=== PATIENT | female | born 1955 | race Hispanic/Latino ===

== ENCOUNTER → 2017-10-30 | Day surgery (SDC) | payer OTHER ==
[~2017-10-30] VITALS: Ht 167.6 cm; Wt 86.2 kg
[~2017-10-30] MED LIST: ACETAMINOPHEN650 M1 PO; ALDACTONE25 MG PO; ASPIRIN81 MG PO; BARRIER CREAM TOP; DIPHENHYDRAMINE25 M1 PO; FENTANYL CITRATE/PF 100MCG/2 ML INJ ONE; FUROSEMIDE40 MG PO; GLUCERNA237 ML PO; HEPARIN SOD/SOD CHLORIDE 2,000 ML ONE; HYDROMORPHO1 MG/1 ML IV; HYDROMORPHONE HC2 MG PO; IOPAMIDOL 370 MG/ML 200 ML INFUS..BTL INJ ONE; ISOSORBIDE DINI20 MG PO; LACTULOSE20 GM/30 M PO; LANTUS 3ML100 UNITS/; LANTUS 3ML100 UNITS/ SQ; LASIX40 MG PO; LIDOCAINE HCL 2% LOCAL 20 ML VIAL ONE; LIDOCAINE PATCH TOP; LORAZEPAM1 MG IVP; MEROPENEM500 MG IV; MIDAZOLAM HCL 2 MG/2 ML VIAL ONE; NOVOLOG100 UNITS1; PANTOPRAZOLE SO40 MG PO; PROPRANOLOL HCL10 MG PO; SODIUM CHLORIDE 0.9% 1000ML 1,000 ML ONE; XIFAXAN550 MG PO
[2017-10-30 14:00] VITALS: BP 113/50
[2017-10-30 14:45] VITALS: BP 107/45
[2017-10-30 15:09] VITALS: BP 111/56
[2017-10-30 15:15] VITALS: BP 105/51
[2017-10-30 15:30] VITALS: BP 107/77
[2017-10-30 15:45] VITALS: BP 110/56
--- NOTE | 2017-12-31 13:58 | Operative Report ---
DATE OF PROCEDURE: October 30, 2017 PROCEDURES PERFORMED 1. Abdominal aortogram. 2. Bilateral lower extremity angiograms. Access was obtained in the left femoral artery. Angiography demonstrated minimal peripheral arterial disease with 2-vessel runoff in both lower extremities. Left groin repaired using Vascade closure device. Patient was discharged home the same day. Job#: [id number]
== END | disposition home or self-care (01) ==
LOC: CATH LAB 13:37
PROVIDERS: ATTEND Internal Medicine Interventional Cardiology
DX: I70.203 Unspecified atherosclerosis of native arteries of extremities, bilateral legs (principal); E11.621 Type 2 diabetes mellitus with foot ulcer; K72.90 Hepatic failure, unspecified without coma; K70.30 Alcoholic cirrhosis of liver without ascites; Z91.013 Allergy to seafood; Z79.82 Long term (current) use of aspirin; Z79.4 Long term (current) use of insulin
CPT/HCPCS: 36247; 75625; 75710; C1760; C1769 ×2; J2001; J2250; J7030; Q9967

== ENCOUNTER 2017-11-12 14:58 | Inpatient (IN) | payer MEDICARE ==
[~2017-11-12] VITALS: Ht 147.3 cm; Wt 72.7 kg
[2017-11-12] MEDS: VANCOMYCIN 1GM/NS 250 ML 250 ML IV SCH (00:20)
[~2017-11-12 14:58] MED LIST changes: -ALDACTONE25 MG PO; -FENTANYL CITRATE/PF 100MCG/2 ML INJ ONE; -HEPARIN SOD/SOD CHLORIDE 2,000 ML ONE; -IOPAMIDOL 370 MG/ML 200 ML INFUS..BTL INJ ONE; -LANTUS 3ML100 UNITS/; -LANTUS 3ML100 UNITS/ SQ; -LASIX40 MG PO; -LIDOCAINE HCL 2% LOCAL 20 ML VIAL ONE; -MIDAZOLAM HCL 2 MG/2 ML VIAL ONE; -SODIUM CHLORIDE 0.9% 1000ML 1,000 ML ONE
[2017-11-12] MEDS ORDERED: LIDOCAINE HCL 1% LOCAL INJ 20 ML VIAL INJ ONE (15:31)
[2017-11-12] MEDS ORDERED: IBUPROFEN 600 MG TAB PO ONE (15:32)
[2017-11-12] MEDS ORDERED: ASPIRIN 81 MG CHEW TAB PO ONE (15:45)
[2017-11-12] MEDS ORDERED: VANCOMYCIN 1GM/NS 250 ML 250 ML IV ONE (15:45)
[2017-11-12] MEDS ORDERED: FAMOTIDINE 20 MG/2 ML VIAL IV ONE (15:45)
[2017-11-12] MEDS ORDERED: PIPERACILLIN/TAZO 4.5 GM 100 ML IV ONE (15:45)
[2017-11-12] MEDS ORDERED: ONDANSETRON HCL INJ 2 MG/ML VIAL IV PRN (15:45)
[2017-11-12 15:48] LABS: BASOPHILS % 0.2 % (0.0-1.0); EOSINOPHILS # (AUTO) 0.2 (0.0-0.4); EOSINOPHILS % 2.9 % (0.0-6.0); HEMATOCRIT 23.5 % (34.2-44.1); HEMOGLOBIN 7.9 g/dL (12.0-16.0); LYMPHOCYTES # (AUTO) 1.9 (1.0-3.2); LYMPHOCYTES % 28.5 % (18.0-39.1); MEAN CORPUSCULAR HEMOGLOBIN 36.2 pg (28-32); MEAN CORPUSCULAR HGB CONC 33.6 g/dL (31-35); MEAN CORPUSCULAR VOLUME 107.8 fL (81-99); MONOCYTES # (AUTO) 0.5 (0.2-0.8); MONOCYTES % 8.2 % (4.4-11.3); NEUTROPHILS # (AUTO) 3.9 (2.1-6.9); NEUTROPHILS % 59.9 % (38.7-80.0); PLATELET COUNT 109 x10e3/uL (140-360); RED BLOOD COUNT 2.18 x10e6/uL (3.6-5.1); RED CELL DISTRIBUTION WIDTH 20.2 % (11.7-14.4)
[2017-11-12 16:03] LABS: ALANINE AMINOTRANSFERASE 21 IU/L (0-55); ALBUMIN 1.8 g/dL (3.5-5.0); ALBUMIN/GLOBULIN RATIO 0.5 (0.8-2.0); ALKALINE PHOSPHATASE 208 IU/L (40-150); AMYLASE 50 U/L (25-125); ANION GAP 7.4 mmol/L (8-16); BLOOD UREA NITROGEN 19 mg/dL (7-26); BUN/CREATININE RATIO 33 (6-25); CALCIUM 7.8 mg/dL (8.4-10.2); CARBON DIOXIDE 27 mmol/L (22-29); CHLORIDE 105 mmol/L (98-107); CREATININE, SERUM 0.58 mg/dL (0.57-1.11); EST GLOMERULAR FILTRATION RATE > 60 ML/MIN (60-); GLUCOSE 248 mg/dL (74-118); LIPASE 75 U/L (8-78); MAGNESIUM 1.5 MG/DL (1.3-2.1); POTASSIUM 3.4 mmol/L (3.5-5.1); SODIUM 136 mmol/L (136-145)
--- NOTE | 2017-11-12 16:30 | Diagnostic Imaging Report ---
PROCEDURE: A single AP view of the chest. COMPARISON: None. INDICATIONS: PRE-OPERATIVE CHEST X-RAY FOR HIATAL HERNIA FINDINGS: Lines/tubes: None. Lungs: Markedly hypoinflated lungs, with bibasilar, right greater than left patchy opacities, likely representing atelectasis. No definite consolidation Pleura: There is no pleural effusion or pneumothorax. Heart and mediastinum: Cardiac silhouette is unremarkable. Central pulmonary vascular crowding, likely due to low lung volumes. Bones: No acute bony abnormality. Orthopedic hardware in the proximal right humerus. Degenerative changes in the left humeral joint. IMPRESSION: 1. markedly hypoinflated lungs with bibasilar, right greater than left atelectasis. No consolidation or effusion. Ryan Valenzuela M.D. Dictated by: Ryan Valenzuela M.D. on 11/12/2017 at 16:35 Electronically approved by: Ryan Valenzuela M.D. on 11/12/2017 at 16:35
[2017-11-12 17:10] LABS: CREATINE KINASE 11 IU/L (29-168)
[2017-11-12 18:06] LABS: BILIRUBIN,URINE NEGATIVE (NEGATIVE); CLARITY,URINE SL CLOUDY (CLEAR); COLOR,URINE YELLOW (YELLOW); KETONES,URINE NEGATIVE (NEGATIVE); LEUKOCYTE ESTERASE ,URINE TRACE (NEGATIVE); NITRITE,URINE NEGATIVE (NEGATIVE); PROTEIN,URINE DIPSTICK TRACE (NEGATIVE); URINE UROBILINOGEN 0.2 mg/dL (0.2 - 1)
[2017-11-12 18:11] LABS: BACTERIA,URINE MODERATE /HPF; EPITHELIAL CELLS,URINE FEW /LPF; MUCUS,URINE RARE (RARE); YEAST,URINE FEW
[2017-11-12] MEDS ORDERED: SODIUM CHLORIDE FLUSH 10 ML SYR INJ PRN (19:00)
[2017-11-12] MEDS ORDERED: DEXTROSE 50% SYRINGE 50 ML IV PRN (19:00)
[2017-11-12] MEDS ORDERED: VANCOMYCIN 1GM/NS 250 ML 250 ML IV SCH (19:00)
[2017-11-12] MEDS ORDERED: LANTUS 3ML100 UNITS/ (19:09)
[2017-11-12] MEDS ORDERED: ALDACTONE25 MG PO (19:09)
[2017-11-12] MEDS ORDERED: LANTUS 3ML100 UNITS/ SQ (19:11)
[2017-11-12] MEDS ORDERED: LASIX40 MG PO (19:11)
[2017-11-12] MEDS ORDERED: SODIUM CHLORIDE 0.9% 1000ML 500 ML IV SCH (19:30)
[2017-11-12 20:50] VITALS: BP 88/47
[2017-11-12] MEDS: INSULIN REGULAR, HUMAN 100 UNIT/1 ML 3ML VIAL SQ SCH (22:00)
[2017-11-12] MEDS: PIPER-TAZ 3.375 GM 50 ML IV SCH (22:23)
[2017-11-12] MEDS: VANCOMYCIN 1GM/NS 250 ML 250 ML IV ONE (23:17)
[2017-11-12] MEDS: LACTULOSE SYRUP 20 GM/30 ML UDC PO SCH (23:25)
[2017-11-13] VITALS (8 sets, daily range): BP systolic 88–116; BP diastolic 47–62
[2017-11-13] MEDS: VANCOMYCIN 1GM/NS 250 ML 250 ML IV ONE (00:42)
[2017-11-13] MEDS: PIPER-TAZ 3.375 GM 50 ML IV SCH ×4 (04:23→22:48)
[2017-11-13] MEDS ORDERED: SODIUM CHLORIDE 0.9% 250ML 250 ML ONE (04:29)
[2017-11-13] MEDS: LACTULOSE SYRUP 20 GM/30 ML UDC PO SCH ×3 (05:19→16:40)
[2017-11-13] MEDS ORDERED: VANCOMYCIN 1GM/NS 250 ML 250 ML IV SCH ×2 (05:30→11:30)
[2017-11-13] MEDS: INSULIN REGULAR, HUMAN 100 UNIT/1 ML 3ML VIAL SQ SCH ×4 (07:30→21:04)
[2017-11-13] MEDS: ACETAMINOPHEN/CODEINE 300MG - 30MG TAB PO PRN ×3 (09:37→22:14)
[2017-11-13] MEDS ORDERED: SODIUM CHLORIDE 0.9% 1000ML 1,000 ML IV ONE (10:15)
--- NOTE | 2017-11-13 10:27 | History and Physical ---
CHIEF COMPLAINT: Chest pain, nonhealing right foot ulcer. HISTORY OF PRESENT ILLNESS: A 62-year-old female patient with a history of diabetes mellitus type 2, alcoholic liver cirrhosis, peripheral vascular disease with a nonhealing diabetic food ulcer Ackerman grade 4. Patient recently hospitalized at the [facility], underwent debridement of the right foot ulcer by box spinner, Dr. Combs. She also had an angiogram of the lower extremities by Dr. Nirav Suarez. She was discharged to [facility] where she lives. She started to have increasing leg swelling and chest pain. She had a venous Doppler was negative for DVT. However, she continued to have chest pain; so, she was sent to the hospital. Patient is awake, alert. She is eager to go home. PAST MEDICAL HISTORY: Diabetes mellitus, hypertension, chronic kidney disease, and alcoholic cirrhosis. PERSONAL HISTORY: History of alcohol use in the past and now half-way resident. Denies smoking. SURGICAL HISTORY: Ankle surgery, foot surgery, debridement. MEDICATIONS 1. Levemir insulin. 2. Tylenol No. 3 for pain. 3. Rifaximin 550 mg p.o. q.12 h. 4. mg p.o. q.12 h. 5. Lidoderm patch. 6. Lactulose. 7. Aspirin 81 mg daily. 8. Aldactone 50 mg b.i.d. 9. Isosorbide dinitrate 30 mg daily. PHYSICAL EXAMINATION GENERAL: Blood pressure 89/65 , pulse of 80, and temperature 98. HEENT: Normal. NECK: No JVD. LUNGS: Bilateral air entry normal. ABDOMEN: Soft. No ascites. LOWER EXTREMITIES: Edema resolved. Right plantar foot: Patient has open wound with exposed fascia and tendon. No drainage noted at this time. LABS: Hemoglobin 7.9, potassium 3.4, platelets of 109. ASSESSMENT 1. Chest pain, atypical pain. 2. Right foot diabetic foot ulcer, Ackerman grade 4, nonhealing. 3. Diabetes mellitus. 4. Hypertension. PLAN: I will admit patient. Cardiology consultation. Apply Dakin's moistened Kerlix to the wound. Change the dressing daily. Infectious disease consultation. Job#: [id number] CF
[2017-11-13] MEDS: VANCOMYCIN 1GM/NS 250 ML 250 ML IV SCH ×2 (10:32→23:45)
--- NOTE | 2017-11-13 11:05 | Diagnostic Imaging Report ---
PROCEDURE: A single AP view of the chest. COMPARISON: Chest radiograph 11/12/2017 INDICATIONS: SOB, ANEMIA FINDINGS: Lines/tubes: None. Lungs: Persistent low lung volumes with right greater than left patchy opacities likely representing atelectasis. Pleura: Increased blunting of the right costophrenic sulcus likely representing a small pleural effusion. No left pleural effusion. No pneumothorax. Heart and mediastinum: The heart and the mediastinum are unremarkable. Bones: No acute bony abnormality. Partially visualized right humeral hardware. Post-traumatic changes of the left proximal humerus. IMPRESSION: Persistent hypoinflated lungs with bibasilar atelectasis. Trace right pleural effusion. Dictated by: Stan Perez M.D. on 11/13/2017 at 11:09 Electronically approved by: Stan Perez M.D. on 11/13/2017 at 11:09
[2017-11-13 11:16] LABS: FOLATE 10.1 ng/mL (7.0-15.4)
[2017-11-13] MEDS ORDERED: ASPIRIN 81 MG CHEW TAB PO ONE (11:45)
[2017-11-13 11:58] LABS: CREATINE KINASE MB 0.5 ng/mL (0-5.0)
[2017-11-13] MEDS ORDERED: FUROSEMIDE INJ 10 MG/ML 4 ML VIAL IV NR (13:00)
--- NOTE | 2017-11-13 13:27 | Consultation ---
DATE OF CONSULTATION: November 13, 2017 CHIEF COMPLAINT: Chest pain, arm pain, knee pain, headache. REASON FOR CONSULTATION: Chest pain. HISTORY OF PRESENT ILLNESS: Patient is a 62-year-old female who has been seen by our service in the past. Patient has history of diabetes, hypertension, hyperlipidemia. Has multiple diabetic foot wounds as well as altered mental status and was admitted to outside facility for care of her chronic medical problems. She was transferred to [facility] because she complained of chest pain. We are consulted for evaluation of this chest pain. Patient is a poor historian; however, reports the chest pain feels like somebody hit her in the chest. It hurts all over her chest with no mitigating factors or alleviating factors. Denies any shortness of breath, palpitations or dizziness. Reports that the chest pain is 7 out of 10 in severity, has been happening for the past 1 hour, seems to arise randomly without any associated signs or symptoms. REVIEW OF SYSTEMS: A 10-point review of systems was performed and other than the HPI was only positive for knee pain, arm pain, headaches and swelling in the legs. PAST MEDICAL HISTORY 1. Diabetes with multiple diabetic foot wounds. 2. Hypertension. 3. Hyperlipidemia. FAMILY HISTORY: Patient's family history is negative for any premature coronary artery disease, otherwise noncontributory. SOCIAL HISTORY: Patient had a history of alcohol use in the past and is now a longterm resident. Denies smoking. CARDIOVASCULAR MEDICATIONS: The patient is on aspirin 81 mg daily, Aldactone 50 mg twice a day, and isosorbide dinitrate 30 mg daily. PHYSICAL EXAMINATION VITAL SIGNS: Temperature 97.5, heart rate 70, respiratory rate 18, blood pressure 102/52, satting 97% on room air. EYES: Conjunctivae are pale but clear. EARS, NOSE, MOUTH AND THROAT: Normal mucosa, pallor but no bleeding or ulcerations noted. NECK: There is no jugular venous distention. MUSCULOSKELETAL: Normal muscle tone but poor strength. No atrophy or abnormal movements. EXTREMITIES: There is no clubbing or cyanosis. SKIN: There are ulcerations of bilateral lower extremities that are covered in dressing. There are no significant venous stasis changes noted. GENERAL: Patient is a well-developed and well-nourished female. CARDIOVASCULAR: Patient's PMI is nondisplaced. Heart tones are regular. Normal S1 and S2 with no murmur, rubs or gallops heard. Patient has normal carotid pulsations bilaterally. Patient has palpable femoral pulses as well as palpable pedal pulses. There is 2+ edema to the level of the knees. RESPIRATORY: No respiratory distress. Lungs are clear to auscultation bilaterally, though poor respiratory effort. ABDOMEN: Soft, nontender and nondistended. There are no masses. No hepatomegaly or splenomegaly noted. NEURO AND PSYCH: Patient is alert and oriented only to person and place. Displays a normal affect. LAB: Lab results reviewed. Patient has macrocytic anemia with hemoglobin of 7.9 and MCV of 100.8. Chemistry: Mildly elevated glucose, normal B12 and folate levels. IMAGING DATA: Reviewed. Chest x-ray with poor expiratory effort, otherwise no significant abnormality. ECG reviewed, normal sinus rhythm with no significant ST-T wave changes. Echo: Patient has no recent echo in our records. Stress test: Patient has never previously had a stress test. Cath: Number 1, patient had a peripheral angiogram performed in October 2017 which displayed no significant peripheral arterial disease. Number 2, patient had coronary angiography performed in 2012 which showed no significant coronary artery disease at that time. ASSESSMENT 1. Atypical chest pain. 2. Chronic liver cirrhosis. 3. Diabetes. 4. Altered mental status. PLAN: Patient's chest pain is very atypical, and patient has a myriad of other nonspecific complaints. She seems a little confused. Unclear if this is her baseline related to her cirrhosis or acute change. Her EKG is unremarkable. Had a cath in 2012 which was normal without significant coronary artery disease. Given these findings, recommend checking 1 set of cardiac enzymes to rule out for any acute myocardial infarction and getting an echocardiogram to evaluate for any structural heart disease. Otherwise, if cardiac enzymes remain normal, I do not feel that any further risk stratification is needed given a normal ECG, atypical chest pain and normal catheterization in the past. Thank you for the consult. Will continue to follow. Job#: [id number] RENE
--- NOTE | 2017-11-13 13:30 | Diagnostic Imaging Report ---
PROCEDURE:US RETROPERITONEAL ( KIDNEY ). COMPARISON:None. INDICATIONS:LOW URINARY OUTPUT TECHNIQUE: Mai-scale and color sonographic images of the bilateral kidneys and bladder where obtained in transverse and longitudinal planes. FINDINGS: RIGHT KIDNEY: Measures 9.9 x 4.3 x 4.4 cm, cortex measures 1.5 cm Cysts: None Solid masses: None Stones: None Hydronephrosis: None Echogenicity: Normal LEFT KIDNEY: Measures 10.2 x 5.1 x 4.5 cm, cortex measures 1.4 cm Cysts: None Solid masses: None Stones: None Hydronephrosis: None Echogenicity: Normal Bladder: Bladder is decompressed via Gutierrez catheter. Other: Free fluid in the abdomen. CONCLUSION: No evidence of hydronephrosis or stones. Ascites within the right upper quadrant. Vinayak Turner D.O. Dictated by: Vinayak Turner D.O. on 11/13/2017 at 13:34 Electronically approved by: Vinayak Turner D.O. on 11/13/2017 at 13:34
[2017-11-13] MEDS ORDERED: MAGNESIUM SULFATE 2GM/50ML 50 ML IV ONE (14:00)
[2017-11-13] MEDS ORDERED: FUROSEMIDE INJ 10 MG/ML 4 ML VIAL IV ONE (14:00)
--- NOTE | 2017-11-13 15:52 | Consultation ---
DATE OF CONSULTATION: RENAL CONSULTATION HISTORY OF PRESENT ILLNESS: Patient is a poor historian. This is a 62-year-old lady who was admitted with generalized edema. She is complaining of pain in her legs where she has some blisters in her feet. Both feet are covered by dressing. She denies any nausea and vomiting at this point in time. ALLERGIES: SHE IS NOT ALLERGIC TO ANY MEDICATIONS. Currently denies shortness of breath, nausea, vomiting. She had a recent angiogram of the lower extremity with peripheral vascular disease. She had a Doppler which was negative for DVT. She has got a longstanding history of type 2 diabetes, alcoholic cirrhosis, hypertension, portal hypertension, chronic kidney disease. SOCIAL HISTORY: Does not smoke or drink. FAMILY HISTORY: Significant for hypertension. RECENT LABS: White count 6.5. Hemoglobin 7.9. Sodium 136 with a potassium 3.4, chloride 105, bicarbonate 27, creatinine 0.5. Magnesium level 1.5. These labs were done yesterday. CURRENT MEDICATIONS: Patient is on furosemide one-time dose. Ibuprofen she received one time. She is on lactulose q. 6 hours. Insulin. She is also on vancomycin per protocol. Received 1 liter bag of normal saline. She has a Gutierrez catheter. She also received a dose of Lasix. She has put out more urine than before. PHYSICAL EXAMINATION: GENERAL: Awake, alert, lying supine. No apparent distress. VITALS: Blood pressure 111/52 pulse. Pulse rate 69. Afebrile. Oxygen saturation 96% room air. HEAD AND NECK: Cornea clear. Oral mucosa dry. LUNGS: Decreased air entry with scattered rales lower third, left more than right. HEART: S1 and S2 audible. ABDOMEN: Otherwise soft, nontender. LOWER EXTREMITY EXAMINATION: Shows 2+ edema, flank edema 1+. IMPRESSION: 1. Generalized edema state with flank, sacral lower extremity edema. Evidence of atelectasis on chest x-ray. 1. Hypokalemia. 2. Hypomagnesemia. Will obtain chemistries. Gently diurese with Lasix 40 mg IV q.12. Will add Aldactone 50 mg p.o. b.i.d. Obtain urine protein/creatinine ratio. Overall prognosis appears poor. Job#: [id number] EV
[2017-11-13] MEDS ORDERED: SODIUM HYPOCHLORITE 0.25% 480 ML SOLN IR ONE (17:00)
[2017-11-13] MEDS ORDERED: SPIRONOLACTONE 25 MG TAB PO SCH (17:00)
--- NOTE | 2017-11-13 18:28 | Diagnostic Imaging Report ---
PROCEDURE:US LIVER COMPARISON:None. INDICATIONS:Cirrhosis FINDINGS: LIVER: Size:14.5 cm in the right midclavicular line, normal Appearance:Increased echogenicity, nodular contour Mass:No focal masses GALLBLADDER: Not visualized BILE DUCTS: Intrahepatic Ducts:No dilation Extrahepatic Ducts:Common bile duct not visualized. PANCREAS: Not visualized secondary to overlying bowel gas. RIGHT KIDNEY: Size:9.4 cm in length Echogenicity:Normal Collecting System:No hydronephrosis Stone:None Cyst/Mass:None VESSELS: Aorta:Not well visualized secondary to overlying bowel gas Inferior Vena Cava:Visualized portions are normal. Main Portal Vein:Not visualized. FREE FLUID: Moderate to large amount of ascites. CONCLUSION: 1. Limited exam with nonvisualization of the gallbladder, CBD, pancreas, and main portal vein. 2. Nodular contour of the liver in keeping with cirrhosis. 3. Moderate to large volume ascites. Dictated by: Stan Perez M.D. on 11/13/2017 at 18:32 Electronically approved by: Stan Perez M.D. on 11/13/2017 at 18:32
--- NOTE | 2017-11-13 19:35 | Consultation ---
DATE OF CONSULTATION: November 13, 2017 REASON FOR CONSULTATION: Right foot infection. Thank you Dr. Hastings for asking me to see this patient. HISTORY: The patient is a 62-year-old woman referred for right foot infection. She was sent to the emergency department with left lower extremity pain and swelling as well as chest pain. There was no fever, chills, cough, or shortness of breath. She was recently hospitalized with severe right diabetic foot infection and required extensive incision and debridement of the plantar aspect of the right foot and lateral right heel. The patient had a long hospitalization for wound care and intravenous antibiotics. She also had a peripheral angiogram, which showed severe peripheral arterial disease and she was supposed to follow up with vascular service. The patient had venous Doppler ultrasound on 11/07/2017 at the [facility] which showed no DVT. I called the [facility] at [phone] to find out if the patient had percutaneous angioplasty recently, but the call was unrewarding. I discussed with PCP who informed me that the patient underwent percutaneous angioplasty about 2 weeks ago. PAST MEDICAL HISTORY: Diabetes mellitus type 2, hypertension, coronary artery disease, peripheral arterial disease, alcoholic liver cirrhosis with esophageal varices, hepatic encephalopathy, right diabetic foot infection, and MRSA nasal colonization. PAST SURGICAL HISTORY: Right shoulder surgery, left ankle surgery and recent right foot wound debridement. ALLERGIES: NO KNOWN DRUG ALLERGIES. MEDICATIONS: See MAR. The current antibiotics are Zosyn 3.375 grams IV piggyback q.6 hours and vancomycin 1 gram IV piggyback q.12 hours. IMMUNIZATION: She received pneumococcal vaccination prior to admission. FAMILY HISTORY: Significant for hypertension. SOCIAL HISTORY: She is a [facility] resident. No current alcohol or tobacco use. She used to be a heavy alcohol consumer. REVIEW OF SYSTEMS: As per history of present illness. PHYSICAL EXAMINATION: VITALS: T-max 98.1, pulse 72, respiratory 18, blood pressure 98/63. Weight 166 pounds. GENERAL: No acute distress. HEENT: Normocephalic. There is mild icterus icterus. There is no ear or nasal discharge. Moist oral mucosa. No pharyngeal erythema or exudate. NECK: Supple. No lymphadenopathy or meningismus. LUNGS: Good air entry bilaterally. HEART: Normal S1 and S2. ABDOMEN: Soft and nontender. EXTREMITIES: 2+ edema of the legs bilaterally. The left leg incisions with ecchymosis and serosanguineous discharge. There is extensive debrided wound of the plantar aspect of the right foot as well as the lateral right heel. SKIN: As per extremities. DOUBLE END SEWER: Awake, alert and oriented to person and place. LABORATORY DATA AND DIAGNOSTICS: WBC 6500, hemoglobin 7.9, platelets 109,000, neutrophils 59.9, lymph 28.5, monos 8.2, eosinophils 2.9, basophils 0.2. BUN 19, creatinine 0.58, blood glucose 144, AST 42 and ALT 21, alkaline phos 208, total bilirubin 3. Right foot wound culture is growing gram-negative yary. Blood culture showed no growth:. IMPRESSION: 1. Debrided right diabetic foot infection. 2. Severe peripheral arterial disease. 3. Diabetes mellitus type 2, controlled. 4. Alcoholic liver cirrhosis. PLAN: 1. Consult cardiovascular service if not yet done. 2. Change Zosyn to 3.375 grams IV piggyback q.8 hours and infuse over 4 hours. 3. Local wound care. 4. Remove Gutierrez catheter. [facility] [id number] [facility]
[2017-11-13] MEDS: SPIRONOLACTONE 25 MG TAB PO SCH (20:09)
[2017-11-13 20:45] LABS: CREATININE,URINE RANDOM 26.67 mg/dL (47-110); TOTAL PROTEIN, URINE 11.8 mg/dL (1-14)
[2017-11-13] MEDS: FUROSEMIDE INJ 10 MG/ML 4 ML VIAL IV SCH (20:59)
[2017-11-14] VITALS (8 sets, daily range): BP systolic 98–125; BP diastolic 47–60
[2017-11-14 05:01] LABS: BASOPHILS % 0.2 % (0.0-1.0); EOSINOPHILS # (AUTO) 0.3 (0.0-0.4); EOSINOPHILS % 4.9 % (0.0-6.0); HEMOGLOBIN 7.5 g/dL (12.0-16.0); LYMPHOCYTES # (AUTO) 1.2 (1.0-3.2); LYMPHOCYTES % 24.4 % (18.0-39.1); MEAN CORPUSCULAR HEMOGLOBIN 36.6 pg (28-32); MEAN CORPUSCULAR HGB CONC 33.9 g/dL (31-35); MEAN CORPUSCULAR VOLUME 107.8 fL (81-99); MONOCYTES # (AUTO) 0.5 (0.2-0.8); MONOCYTES % 9.1 % (4.4-11.3); NEUTROPHILS # (AUTO) 3.1 (2.1-6.9); NEUTROPHILS % 61.2 % (38.7-80.0); PLATELET COUNT 102 x10e3/uL (140-360); RED BLOOD COUNT 2.05 x10e6/uL (3.6-5.1); RED CELL DISTRIBUTION WIDTH 20.1 % (11.7-14.4)
[2017-11-14 05:03] LABS: HEMATOCRIT 22.1 % (34.2-44.1)
[2017-11-14 05:25] LABS: ALANINE AMINOTRANSFERASE 19 IU/L (0-55); ALBUMIN 1.6 g/dL (3.5-5.0); ALBUMIN/GLOBULIN RATIO 0.5 (0.8-2.0); ALKALINE PHOSPHATASE 151 IU/L (40-150); ANION GAP 9.1 mmol/L (8-16); BLOOD UREA NITROGEN 18 mg/dL (7-26); BUN/CREATININE RATIO 28 (6-25); CALCIUM 7.5 mg/dL (8.4-10.2); CARBON DIOXIDE 27 mmol/L (22-29); CHLORIDE 106 mmol/L (98-107); CREATININE, SERUM 0.64 mg/dL (0.57-1.11); EST GLOMERULAR FILTRATION RATE > 60 ML/MIN (60-); GLUCOSE 129 mg/dL (74-118); POTASSIUM 3.1 mmol/L (3.5-5.1); SODIUM 139 mmol/L (136-145)
[2017-11-14] MEDS: LACTULOSE SYRUP 20 GM/30 ML UDC PO SCH ×5 (05:49→23:29)
[2017-11-14] MEDS: PIPER-TAZ 3.375 GM 50 ML IV SCH ×4 (05:49→23:18)
[2017-11-14] MEDS ORDERED: POTASSIUM CHLORIDE 20MEQ/100ML 200 ML IV ONE (07:00)
[2017-11-14] MEDS: FUROSEMIDE INJ 10 MG/ML 4 ML VIAL IV SCH ×3 (08:34→23:18)
[2017-11-14] MEDS: INSULIN REGULAR, HUMAN 100 UNIT/1 ML 3ML VIAL SQ SCH ×4 (08:34→22:02)
[2017-11-14] MEDS: COLLAGENASE OINTMENT 30 GM TUBE TP SCH (08:34)
[2017-11-14] MEDS: SPIRONOLACTONE 25 MG TAB PO SCH ×2 (08:34→21:39)
[2017-11-14] MEDS: ACETAMINOPHEN/CODEINE 300MG - 30MG TAB PO PRN ×2 (08:35→21:58)
[2017-11-14] MEDS ORDERED: SODIUM CHLORIDE 0.9% 250ML 250 ML IV ONE (11:15)
[2017-11-14] MEDS: VANCOMYCIN 1GM/NS 250 ML 250 ML IV SCH (11:30)
--- NOTE | 2017-11-14 11:33 | Progress Note ---
DATE: November 14, 2017 CARDIOLOGY PROGRESS NOTE SUBJECTIVE: The patient denies chest pain or shortness of breath. OBJECTIVE VITALS: Temperature 96.5 degrees, pulse 78, respiratory rate 20, blood pressure 125/56, oxygen saturation 95% on room air. GENERAL: Awake, alert and in no acute distress. LUNGS: Clear to auscultation bilaterally. No wheezes or crackles. CARDIOVASCULAR: Normal rate. Regular rhythm. No murmur. Normal S1 and S2. ABDOMEN: Soft and nontender. EXTREMITIES: Three plus pitting edema in bilateral lower extremities with dressing intact on the right foot, as well as skin tears on the left lower leg. CARDIAC MEDICATIONS 1. Spironolactone 50 mg p.o. q.12 h. 2. Furosemide 40 mg IV q.12 h. LABS: WBC 5.08, hemoglobin 7.5, hematocrit 22.1, and platelets 102,000. Sodium 139, potassium 3.1, chloride 106, CO2 27, BUN 18, creatinine 0.64. Telemetry is normal sinus rhythm. Peripheral angiogram in October 2017 did not demonstrate any significant peripheral arterial disease. Coronary angiogram performed in 2012 without significant coronary artery disease. IMPRESSION 1. Infected diabetic right foot ulcer. 2. Atypical chest pain. 3. Liver cirrhosis. 4. Diabetes mellitus. RECOMMENDATIONS: Strict I's and O's, as well as daily weights. Fluid restriction. No evidence of myocardial infarction was present on serial cardiac biomarkers. Continue current cardiac medications. No further cardiac evaluation is indicated at this time. Continue monitoring the patient on telemetry. IV antibiotics per infectious disease. Wound care per podiatry. Thank you for this consult. We will continue to follow. Job#: [id number] MAHIN
[2017-11-14] MEDS: FUROSEMIDE INJ 10 MG/ML 2 ML VIAL IV PRN (16:23)
[2017-11-15] VITALS (7 sets, daily range): BP systolic 107–122; BP diastolic 53–58
[2017-11-15 05:24] LABS: BASOPHILS % 0.2 % (0.0-1.0); EOSINOPHILS # (AUTO) 0.2 (0.0-0.4); EOSINOPHILS % 3.4 % (0.0-6.0); HEMATOCRIT 23.9 % (34.2-44.1); HEMOGLOBIN 8.1 g/dL (12.0-16.0); LYMPHOCYTES # (AUTO) 1.4 (1.0-3.2); LYMPHOCYTES % 31.8 % (18.0-39.1); MEAN CORPUSCULAR HEMOGLOBIN 35.2 pg (28-32); MEAN CORPUSCULAR HGB CONC 33.9 g/dL (31-35); MONOCYTES # (AUTO) 0.4 (0.2-0.8); NEUTROPHILS # (AUTO) 2.4 (2.1-6.9); NEUTROPHILS % 54.4 % (38.7-80.0); PLATELET COUNT 68 x10e3/uL (140-360)
[2017-11-15 05:28] LABS: MEAN CORPUSCULAR VOLUME 103.9 fL (81-99)
[2017-11-15 05:45] LABS: ALANINE AMINOTRANSFERASE 18 IU/L (0-55); ALBUMIN 1.6 g/dL (3.5-5.0); ALBUMIN/GLOBULIN RATIO 0.5 (0.8-2.0); ALKALINE PHOSPHATASE 155 IU/L (40-150); ANION GAP 9.1 mmol/L (8-16); BLOOD UREA NITROGEN 14 mg/dL (7-26); BUN/CREATININE RATIO 23 (6-25); CALCIUM 7.6 mg/dL (8.4-10.2); CARBON DIOXIDE 29 mmol/L (22-29); CHLORIDE 102 mmol/L (98-107); EST GLOMERULAR FILTRATION RATE > 60 ML/MIN (60-); GLUCOSE 112 mg/dL (74-118); POTASSIUM 3.1 mmol/L (3.5-5.1); SODIUM 137 mmol/L (136-145)
[2017-11-15] MEDS: FUROSEMIDE INJ 10 MG/ML 4 ML VIAL IV SCH ×3 (06:47→21:58)
[2017-11-15] MEDS: LACTULOSE SYRUP 20 GM/30 ML UDC PO SCH ×4 (06:47→23:44)
[2017-11-15] MEDS: PIPER-TAZ 3.375 GM 50 ML IV SCH ×3 (06:47→21:58)
[2017-11-15] MEDS: INSULIN REGULAR, HUMAN 100 UNIT/1 ML 3ML VIAL SQ SCH ×4 (07:30→20:42)
[2017-11-15] MEDS: SPIRONOLACTONE 25 MG TAB PO SCH ×2 (07:56→20:41)
[2017-11-15] MEDS ORDERED: POTASSIUM CHLORIDE 20MEQ/15ML UDC PO ONE (10:00)
[2017-11-15] MEDS ORDERED: POTASSIUM CHLORIDE 10 MEQ TABCR PO ONE (10:30)
[2017-11-15] MEDS ORDERED: SODIUM CHLORIDE 0.9% 250ML 250 ML ONE (12:12)
--- NOTE | 2017-11-15 13:19 | Progress Note ---
DATE: November 15, 2017 CARDIOLOGY PROGRESS NOTE SUBJECTIVE: Patient denies chest pain. However, she is complaining of shortness of breath. She wishes to go home. However, the patient is only able to state that she is at the hospital. She could not name the location of the hospital or the name of the facility. Additionally, she stated the year was 2019. OBJECTIVE VITAL SIGNS: Temperature 98.2 degrees, pulse 93, respiratory rate 18, blood pressure 120/53, oxygen saturation 93% on 3 liters nasal cannula. GENERAL: Awake, alert, in no acute distress. LUNGS: Clear to auscultation bilaterally. No wheezes or crackles. CARDIOVASCULAR: Normal rate, regular rhythm. No murmur. Normal S1 and S2. ABDOMEN: Soft, nontender. EXTREMITIES: 3+ pitting edema bilateral lower extremities with dressing intact on the right foot. CARDIAC MEDICATIONS 1. Spironolactone 50 mg p.o. q.12 h. 2. Furosemide 40 mg IV q.8 h. LABS: WBC 4.4, hemoglobin 8.1, hematocrit 23.9, platelets 68. Sodium 137, potassium 3.1, chloride 102, CO2 29, BUN 14, creatinine 0.6. Urine culture growing Janelle famata. Foot wound culture with gram-negative bacillus as well as MRSA. TELEMETRY: Normal sinus rhythm. PERIPHERAL ANGIOGRAM IN OCTOBER 2017: Did not demonstrate any significant peripheral arterial disease. CORONARY ANGIOGRAM PERFORMED IN 2012: Without significant coronary artery disease. IMPRESSION 1. Infected diabetic right foot ulcer. 2. Atypical chest pain. 3. Volume overload. 4. Liver cirrhosis. 5. Diabetes mellitus. RECOMMENDATIONS: Patient has had good diuresis with spironolactone and IV Lasix. We will continue to monitor creatinine. Strict I's and O's and daily weights. No evidence of myocardial infarction was present on serial cardiac biomarkers. Continue current cardiac medications. Monitor patient on telemetry. IV antibiotics per Infectious Disease. Wound care per Podiatry. Thank you for this consult. We will continue to follow. Job#: [id number] EV MTDOnel
[2017-11-15] MEDS: COLLAGENASE OINTMENT 30 GM TUBE TP SCH (17:01)
--- NOTE | 2017-11-15 17:57 | Diagnostic Imaging Report ---
FOOT RIGHT COMPLETE - 3 views HISTORY: Diabetic foot. Foot ulcer. Osteomyelitis? COMPARISON: None available. FINDINGS: Lateral view wasn't obtained patient could not cooperate with positioning. Overlying artifact. Bones: Generalized osteopenia. No definite erosions. No acute displaced fracture. Joints: Degenerative changes of the hindfoot joint. Sclerosis of the calcaneus. Soft tissues: Vessel calcifications. Soft tissue swelling. IMPRESSION: Limited exam. Osteopenia limits of resolution for erosions. Consider evaluation with MRI. Signed by: Dr. Rea Mckee M.D. on 11/15/2017 5:53 PM
[2017-11-15] MEDS: PANTOPRAZOLE SOD 40 MG TABEC PO SCH (18:09)
[2017-11-15] MEDS: ACETAMINOPHEN/CODEINE 300MG - 30MG TAB PO PRN (18:34)
[2017-11-15 22:03] LABS: INR 1.62; PROTHROMBIN TIME 18.1 seconds (11.9-14.5)
[2017-11-16] VITALS (8 sets, daily range): BP systolic 95–132; BP diastolic 47–60
[2017-11-16] MEDS ORDERED: PHYTONADIONE 10 MG/ML AMP IV STA (02:01)
[2017-11-16] MEDS ORDERED: PHYTONADIONE 10MG/ML 20 MG in SODIUM CHLORIDE 0.9% 100 ML IV ONE (02:15)
[2017-11-16] MEDS ORDERED: PHYTONADIONE 10MG/ML 2 ML ONE (02:21)
[2017-11-16] MEDS ORDERED: SODIUM CHLORIDE 0.9% 100 ML ONE (02:41)
[2017-11-16] MEDS: LACTULOSE SYRUP 20 GM/30 ML UDC PO SCH ×3 (06:00→18:00)
[2017-11-16 06:03] LABS: BASOPHILS % 0.2 % (0.0-1.0); EOSINOPHILS # (AUTO) 0.1 (0.0-0.4); EOSINOPHILS % 1.7 % (0.0-6.0); HEMATOCRIT 27.3 % (34.2-44.1); HEMOGLOBIN 9.2 g/dL (12.0-16.0); LYMPHOCYTES # (AUTO) 1.4 (1.0-3.2); LYMPHOCYTES % 24.7 % (18.0-39.1); MEAN CORPUSCULAR HEMOGLOBIN 34.7 pg (28-32); MEAN CORPUSCULAR HGB CONC 33.7 g/dL (31-35); MONOCYTES # (AUTO) 0.4 (0.2-0.8); MONOCYTES % 7.5 % (4.4-11.3); NEUTROPHILS # (AUTO) 3.8 (2.1-6.9); NEUTROPHILS % 65.4 % (38.7-80.0); PLATELET COUNT 67 x10e3/uL (140-360); RED BLOOD COUNT 2.65 x10e6/uL (3.6-5.1); RED CELL DISTRIBUTION WIDTH 20.8 % (11.7-14.4)
[2017-11-16] MEDS: FUROSEMIDE INJ 10 MG/ML 4 ML VIAL IV SCH ×3 (06:09→22:03)
[2017-11-16] MEDS: PIPER-TAZ 3.375 GM 50 ML IV SCH (06:09)
[2017-11-16 06:14] LABS: INR 1.46; PROTHROMBIN TIME 16.7 seconds (11.9-14.5)
[2017-11-16 06:15] LABS: PARTIAL THROMBOPLASTIN TIME 34.7 seconds (23.8-35.5)
[2017-11-16 06:23] LABS: ALANINE AMINOTRANSFERASE 17 IU/L (0-55); ALBUMIN 1.7 g/dL (3.5-5.0); ALBUMIN/GLOBULIN RATIO 0.5 (0.8-2.0); ALKALINE PHOSPHATASE 163 IU/L (40-150); ANION GAP 12.6 mmol/L (8-16); BLOOD UREA NITROGEN 11 mg/dL (7-26); BUN/CREATININE RATIO 19 (6-25); CALCIUM 7.9 mg/dL (8.4-10.2); CARBON DIOXIDE 29 mmol/L (22-29); CHLORIDE 99 mmol/L (98-107); CREATININE, SERUM 0.59 mg/dL (0.57-1.11); EST GLOMERULAR FILTRATION RATE > 60 ML/MIN (60-); GLUCOSE 93 mg/dL (74-118); POTASSIUM 3.6 mmol/L (3.5-5.1); SODIUM 137 mmol/L (136-145)
[2017-11-16 06:39] LABS: BILIRUBIN,DIRECT 1.7 mg/dL (0.0-0.5); CHOL/HDL RATIO 6.8 (3.0-3.6); CHOLESTEROL 81 MD/DL (0-199); HDL CHOLESTEROL 12 MG/DL (40-60); IRON 64 ug/dL (50-170); LDL CHOLESTEROL 51 MG/DL (60-130); MAGNESIUM 1.2 MG/DL (1.3-2.1); TRANSFERRIN < 70 mg/dL (180-382); TRIGLYCERIDES 91 MG/DL (0-149)
[2017-11-16 06:59] LABS: FERRITIN 498.27 ng/mL (4.63-204.00)
[2017-11-16] MEDS: PANTOPRAZOLE SOD 40 MG TABEC PO SCH (07:30)
[2017-11-16] MEDS: INSULIN REGULAR, HUMAN 100 UNIT/1 ML 3ML VIAL SQ SCH ×4 (07:30→20:58)
[2017-11-16] MEDS ORDERED: MAGNESIUM SULFATE 2GM/50ML 50 ML IV ONE (08:45)
[2017-11-16] MEDS: RIFAXIMIN 550 MG TABLET PO SCH ×2 (09:00→18:00)
[2017-11-16] MEDS: PROPRANOLOL HCL 10 MG TAB PO SCH ×2 (09:00→17:00)
[2017-11-16] MEDS: SPIRONOLACTONE 25 MG TAB PO SCH ×2 (09:00→20:58)
[2017-11-16] MEDS ORDERED: D5.45%NS/KCL 20MEQ 1,000 ML IV ONE (09:15)
--- NOTE | 2017-11-16 14:31 | Progress Note ---
DATE: November 16, 2017 CARDIOLOGY PROGRESS NOTE SUBJECTIVE AND OVERNIGHT EVENTS: No major events overnight. Patient is much more alert and oriented x3 this morning, which is an improvement from when I saw her last. Denies any chest pain or shortness of breath and overall is feeling better. REVIEW OF SYSTEMS: Negative other than what is mentioned in the HPI. OBJECTIVE VITAL SIGNS: Temperature 99.0, heart rate 93, respiratory rate 18, blood pressure 95/47, and saturating 99% on room air. Intake and output, patient has had 2000 mL of urine output today and is diuresing well. Intake is not recorded. GENERAL: Patient is in no acute distress. Thin female. CARDIOVASCULAR: PMI nondisplaced. Regular heart tones. S1 and S2 normal. No murmurs, rubs or gallops. Palpable radial, carotid and femoral pulses. Pedal pulses could not be palpated due to significant edema. The patient has a dressing over her bilateral lower extremities. Three plus pitting edema up to her thighs. LUNGS: Clear to auscultation bilaterally. No respiratory distress. ABDOMEN: Soft, nontender and nondistended. No hepatosplenomegaly. NEURO/PSYCH: The patient is alert and oriented to person and place. Not time. Has a normal affect. CARDIOVASCULAR MEDICATIONS: Furosemide 40 mg IV q.8h., propranolol 10 mg twice a day, and spironolactone 50 mg q.12h. p.o. LABORATORY DATA: Reviewed, is notable for hemoglobin of 9.2, which has improved from hemoglobin of 7.5 earlier, platelet count is 67. Her INR is 1.5 with elevated PT of 16.7. Chemistry : Potassium is 3.6 with creatinine of 0.59. IMAGING: Imaging studies reviewed. No significant imaging data today. TELEMETRY: Telemetry data reviewed. Normal sinus rhythm. No significant arrhythmias. ASSESSMENT 1. Infected diabetic bilateral lower extremity ulcerations. 2. Atypical chest pain. 3. Volume overload. 4. Liver cirrhosis, likely alcoholic. 5. Diabetes. RECOMMENDATIONS: Diuresing well on current diuretic regimen as stated above. We will continue current medications and monitor creatinine and potassium closely. Recommend strict I's and O's and daily weights. Patient's chest pain has resolved. She was ruled out for any myocardial infarction with serial cardiac enzymes. IV antibiotics per infectious disease. Wound care per podiatry. Patient has no significant peripheral artery disease based on recent angiography. Thank you for this consult. We will continue to follow. Job#: [id number] KATHERINE B[facility]KFORD
--- NOTE | 2017-11-16 16:25 | Operative Report ---
DATE OF PROCEDURE: November 16, 2017 REFERRING PHYSICIAN: Dr. Hastings. PROCEDURE PERFORMED: Esophagogastroduodenoscopy with biopsies and fulguration of duodenal arteriovenous malformations. INDICATIONS FOR ESOPHAGOGASTRODUODENOSCOPY: Anemia, guaiac positive stools. MEDICATION: Patient was done under MAC. Please see anesthesiologist's note. PROCEDURE: With the patient in the left lateral decubitus position, the flexible fiberoptic Olympus gastroscope was introduced into the esophagus under direct visualization without any difficulty. There was some patchy erythema noted in the distal esophagus. A Schatzki's ring was noted just above the GE junction. The scope was then advanced with ease into the stomach, traversing a small hiatal hernia. Mucosa overlying the antrum and the body revealed some patchy erythema and mild to moderate edema, and biopsies were obtained and sent to stain for H. pylori. There were some mild patchy portal hypertensive gastropathy changes. The pylorus was of normal contour and shape. The scope was then advanced with ease all the way to the 2nd portion of the duodenum. Some AVMs were noted in the proximal 2nd portion. One was actively bleeding. Those were fulgurated with good hemostasis with a size 7-Greek Gold Probe. The scope was then withdrawn back into the duodenal bulb, and an additional AVM was noted that was also fulgurated. The scope was then withdrawn back into the stomach and retroflexed, and the mucosa overlying the fundus grossly appeared to be within normal limits, and the previously described hiatal hernia was also noted in the retroflexed position. The scope was then straightened out. The stomach was decompressed. The scope was subsequently withdrawn. Patient tolerated the procedure well. IMPRESSION: 1. Mild distal esophagitis. 2. Schatzki's ring. 3. Small sliding hiatal hernia. 4. Gastritis biopsied. Biopsies sent to stain for H. pylori. 5. Mild portal hypertensive gastropathy. 6. 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 PLAN: Follow up histology. Follow H\T\H. Add Carafate 1 gram p.o. a.c. t.i.d. and nightly. Job#: [id number] RENE cc:BRIANNE HASTINGS MD
[2017-11-16] MEDS ORDERED: AMIKACIN SULFATE 250 MG/ML 2ML VIAL IV ONE (16:30)
[2017-11-16] MEDS ORDERED: VANCOMYCIN 1GM/NS 250 ML 250 ML IV SCH (16:30)
[2017-11-16] MEDS ORDERED: AMIKACIN SULFATE IV SCH (17:00)
[2017-11-16] MEDS ORDERED: SODIUM CHLORIDE 0.9% IV SCH (17:00)
[2017-11-16] MEDS ORDERED: PROPOFOL IV EMULSION 10 MG/ML 50 ML VIAL ONE (17:12)
[2017-11-16] MEDS ORDERED: LIDOCAINE HCL 2% LOCAL INJ 5 ML SDV VIAL INJ ONE (17:12)
[2017-11-16] MEDS: VANCOMYCIN 1GM/NS 250 ML 250 ML IV SCH (17:59)
[2017-11-16] MEDS: SUCRALFATE 1 GM TAB PO SCH ×2 (17:59→20:58)
[2017-11-16] MEDS: COLLAGENASE OINTMENT 30 GM TUBE TP SCH (18:00)
[2017-11-16] MEDS ORDERED: MIDAZOLAM HCL 2 MG/2 ML VIAL ONE (18:03)
[2017-11-16] MEDS: ACETAMINOPHEN/CODEINE 300MG - 30MG TAB PO PRN (18:10)
[2017-11-17] VITALS (8 sets, daily range): BP systolic 102–114; BP diastolic 46–59
[2017-11-17 05:04] LABS: BASOPHILS % 0.3 % (0.0-1.0); EOSINOPHILS # (AUTO) 0.2 (0.0-0.4); EOSINOPHILS % 4.4 % (0.0-6.0); HEMOGLOBIN 7.6 g/dL (12.0-16.0); LYMPHOCYTES # (AUTO) 1.1 (1.0-3.2); LYMPHOCYTES % 31.7 % (18.0-39.1); MEAN CORPUSCULAR HEMOGLOBIN 35.7 pg (28-32); MEAN CORPUSCULAR HGB CONC 33.6 g/dL (31-35); MEAN CORPUSCULAR VOLUME 106.1 fL (81-99); MONOCYTES # (AUTO) 0.3 (0.2-0.8); MONOCYTES % 9.5 % (4.4-11.3); NEUTROPHILS # (AUTO) 1.8 (2.1-6.9); NEUTROPHILS % 53.5 % (38.7-80.0); RED BLOOD COUNT 2.13 x10e6/uL (3.6-5.1); RED CELL DISTRIBUTION WIDTH 19.9 % (11.7-14.4)
[2017-11-17 05:10] LABS: HEMATOCRIT 22.6 % (34.2-44.1); PLATELET COUNT 45 x10e3/uL (140-360)
[2017-11-17 05:31] LABS: ALANINE AMINOTRANSFERASE 11 IU/L (0-55); ALBUMIN 1.4 g/dL (3.5-5.0); ALBUMIN/GLOBULIN RATIO 0.5 (0.8-2.0); ALKALINE PHOSPHATASE 124 IU/L (40-150); ANION GAP 8.1 mmol/L (8-16); BLOOD UREA NITROGEN 10 mg/dL (7-26); BUN/CREATININE RATIO 19 (6-25); CALCIUM 7.4 mg/dL (8.4-10.2); CARBON DIOXIDE 31 mmol/L (22-29); CHLORIDE 98 mmol/L (98-107); CREATININE, SERUM 0.53 mg/dL (0.57-1.11); EST GLOMERULAR FILTRATION RATE > 60 ML/MIN (60-); GLUCOSE 159 mg/dL (74-118); POTASSIUM 3.1 mmol/L (3.5-5.1); SODIUM 134 mmol/L (136-145)
[2017-11-17] MEDS: LACTULOSE SYRUP 20 GM/30 ML UDC PO SCH ×5 (05:45→23:44)
[2017-11-17] MEDS: FUROSEMIDE INJ 10 MG/ML 4 ML VIAL IV SCH (05:45)
[2017-11-17 07:00] LABS: PLATELET ESTIMATE MARKEDLY DECREASED; PLATELET MORPHOLOGY COMMENT NORMAL
[2017-11-17 07:01] LABS: ANISOCYTOSIS SLIGHT; HYPOCHROMASIA SLIGHT; RBC MORPHOLOGY COMMENT NORMAL
[2017-11-17] MEDS: INSULIN REGULAR, HUMAN 100 UNIT/1 ML 3ML VIAL SQ SCH ×4 (07:30→21:49)
[2017-11-17] MEDS: PANTOPRAZOLE SOD 40 MG TABEC PO SCH (07:54)
[2017-11-17] MEDS: SUCRALFATE 1 GM TAB PO SCH ×4 (07:54→21:49)
[2017-11-17] MEDS ORDERED: POTASSIUM CHLORIDE 20 MEQ TAB CR PO NR (08:15)
[2017-11-17] MEDS: PROPRANOLOL HCL 10 MG TAB PO SCH ×2 (09:00→17:00)
[2017-11-17] MEDS ORDERED: SODIUM CHLORIDE 0.9% 250ML 250 ML IV ONE (09:15)
[2017-11-17] MEDS: SPIRONOLACTONE 25 MG TAB PO SCH ×3 (09:35→21:49)
[2017-11-17] MEDS: RIFAXIMIN 550 MG TABLET PO SCH ×2 (09:35→17:38)
[2017-11-17] MEDS: MAGNESIUM OXIDE 400 MG TAB PO SCH (09:35)
[2017-11-17] MEDS ORDERED: FUROSEMIDE INJ 10 MG/ML 4 ML VIAL IV NR (09:45)
[2017-11-17] MEDS: ACETAMINOPHEN/CODEINE 300MG - 30MG TAB PO PRN ×2 (10:35→23:45)
[2017-11-17] MEDS: COLLAGENASE OINTMENT 30 GM TUBE TP SCH (10:45)
[2017-11-17] MEDS ORDERED: POTASSIUM CHLORIDE 20 MEQ TAB CR PO SCH (12:30)
--- NOTE | 2017-11-17 15:11 | Progress Note ---
DATE: November 17, 2017 CARDIOLOGY PROGRESS NOTE SUBJECTIVE/OVERNIGHT EVENTS: No major events overnight. Patient is feeling well today. No complaints. REVIEW OF SYSTEMS: Negative except for pain in bilateral lower extremities at her wounds. OBJECTIVE VITAL SIGNS: Temperature 97.8, heart rate 89, respiratory rate 16, blood pressure 114/59, satting 97% on 2 L nasal cannula. I's and O's -2.5 L yesterday. GENERAL: Patient is in no acute distress. Thin female. CARDIOVASCULAR: PMI nondisplaced. Regular heart tones. S1 and S2 normal. No murmurs, rubs or gallops. Palpable radial, carotid and femoral pulses. Pedal pulses could not be palpated due to significant edema. The patient has a dressing over her bilateral lower extremities. Three plus pitting edema up to her thighs. LUNGS: Clear to auscultation bilaterally. No respiratory distress. ABDOMEN: Soft, nontender and nondistended. No hepatosplenomegaly. NEURO/PSYCH: The patient is alert and oriented to person and place. Not time. Has a normal affect. CARDIOVASCULAR MEDICATIONS 1. Furosemide 40 mg p.o. b.i.d. 2. Spironolactone 50 mg p.o. t.i.d. 3. Potassium chloride 20 mEq daily. 4. Isosorbide dinitrate 30 mg daily. 5. Propranolol 10 mg b.i.d. LABORATORY DATA: Reviewed. Notable for hemoglobin of 7.6 and platelet count of 45,000, which is critically low. Potassium has decreased to 3.1 from 3.6 yesterday. IMAGING: No new imaging data reviewed. Telemetry data reviewed and shows normal sinus rhythm without significant arrhythmias. CARDIOLOGY DATA: No new cardiology data to review today. ASSESSMENT AND PLAN 1. Infected diabetic bilateral lower extremity ulcerations. 2. Atypical chest pain. 3. Volume overload. 4. Liver cirrhosis, likely alcoholic. 5. Diabetes. RECOMMENDATIONS: The patient continues to diurese well. Continue diuretic regimen as above. Replete potassium p.r.n. Echo results reviewed and essentially normal. Will continue to follow. Thank you for this consult. Job#: [id number] MAHIN BECKFORD
[2017-11-17] MEDS: FUROSEMIDE INJ 10 MG/ML 2 ML VIAL IV PRN (15:52)
[2017-11-17] MEDS ORDERED: SODIUM CHLORIDE 0.9% 250ML 250 ML ONE ×2 (16:27→21:24)
[2017-11-17] MEDS: FUROSEMIDE 40 MG TAB PO SCH (17:38)
[2017-11-17] MEDS: VANCOMYCIN 1GM/NS 250 ML 250 ML IV SCH (17:42)
[2017-11-17] MEDS ORDERED: AMIKACIN SULFATE 250 MG/ML 2ML VIAL IV ONE (17:45)
[2017-11-17] MEDS ORDERED: SODIUM CHLORIDE 0.9% IV SCH (18:00)
[2017-11-17] MEDS ORDERED: AMIKACIN SULFATE IV SCH (18:00)
[2017-11-18] VITALS: BP 119/59
[2017-11-18] MEDS ORDERED: PHYTONADIONE 10 MG/ML AMP IV ONE (02:00)
[2017-11-18] MEDS ORDERED: SODIUM CHLORIDE 0.9% 100 ML ONE (02:19)
[2017-11-18 04:00] VITALS: BP 117/58
[2017-11-18] MEDS: LACTULOSE SYRUP 20 GM/30 ML UDC PO SCH ×3 (05:20→17:32)
[2017-11-18] MEDS: FUROSEMIDE 40 MG TAB PO SCH (05:20)
[2017-11-18 05:38] LABS: BASOPHILS % 0.2 % (0.0-1.0); EOSINOPHILS # (AUTO) 0.2 (0.0-0.4); EOSINOPHILS % 4.2 % (0.0-6.0); HEMATOCRIT 33.7 % (34.2-44.1); HEMOGLOBIN 11.4 g/dL (12.0-16.0); LYMPHOCYTES # (AUTO) 1.2 (1.0-3.2); LYMPHOCYTES % 29.5 % (18.0-39.1); MEAN CORPUSCULAR HEMOGLOBIN 33.2 pg (28-32); MEAN CORPUSCULAR HGB CONC 33.8 g/dL (31-35); MEAN CORPUSCULAR VOLUME 98.3 fL (81-99); MONOCYTES # (AUTO) 0.4 (0.2-0.8); MONOCYTES % 8.7 % (4.4-11.3); NEUTROPHILS # (AUTO) 2.3 (2.1-6.9); NEUTROPHILS % 56.9 % (38.7-80.0); RED BLOOD COUNT 3.43 x10e6/uL (3.6-5.1); RED CELL DISTRIBUTION WIDTH 20.7 % (11.7-14.4)
[2017-11-18 05:53] LABS: INR 2.28; PROTHROMBIN TIME 23.6 seconds (11.9-14.5)
[2017-11-18 05:55] LABS: PLATELET COUNT 49 x10e3/uL (140-360)
[2017-11-18 06:08] LABS: ALANINE AMINOTRANSFERASE 12 IU/L (0-55); ALBUMIN 1.6 g/dL (3.5-5.0); ALBUMIN/GLOBULIN RATIO 0.5 (0.8-2.0); ALKALINE PHOSPHATASE 142 IU/L (40-150); ANION GAP 7.9 mmol/L (8-16); BLOOD UREA NITROGEN 9 mg/dL (7-26); BUN/CREATININE RATIO 17 (6-25); CALCIUM 7.7 mg/dL (8.4-10.2); CARBON DIOXIDE 31 mmol/L (22-29); CHLORIDE 99 mmol/L (98-107); CREATININE, SERUM 0.54 mg/dL (0.57-1.11); EST GLOMERULAR FILTRATION RATE > 60 ML/MIN (60-); GLUCOSE 131 mg/dL (74-118); POTASSIUM 3.9 mmol/L (3.5-5.1); SODIUM 134 mmol/L (136-145)
[2017-11-18 07:09] LABS: ANISOCYTOSIS SLIGHT; HYPOCHROMASIA SLIGHT; PLATELET ESTIMATE MODERATELY DECREASED; PLATELET MORPHOLOGY COMMENT NORMAL; RBC MORPHOLOGY COMMENT NORMAL
[2017-11-18] MEDS: INSULIN REGULAR, HUMAN 100 UNIT/1 ML 3ML VIAL SQ SCH ×3 (07:30→17:11)
[2017-11-18 08:00] VITALS: BP 103/59
[2017-11-18] MEDS: PROPRANOLOL HCL 10 MG TAB PO SCH ×2 (08:29→17:10)
[2017-11-18 08:50] VITALS: BP 103/59
[2017-11-18] MEDS: PANTOPRAZOLE SOD 40 MG TABEC PO SCH (08:53)
[2017-11-18] MEDS: RIFAXIMIN 550 MG TABLET PO SCH ×2 (08:53→17:10)
[2017-11-18] MEDS: SPIRONOLACTONE 25 MG TAB PO SCH ×2 (08:53→15:00)
[2017-11-18] MEDS: MAGNESIUM OXIDE 400 MG TAB PO SCH (08:53)
[2017-11-18] MEDS: SUCRALFATE 1 GM TAB PO SCH ×3 (08:53→17:09)
[2017-11-18] MEDS: ACETAMINOPHEN/CODEINE 300MG - 30MG TAB PO PRN (08:54)
[2017-11-18] MEDS ORDERED: POTASSIUM CHLORIDE 20 MEQ TAB CR PO SCH (09:00)
[2017-11-18] MEDS ORDERED: ISOSORBIDE DINITRATE 20 MG TAB PO SCH (09:00)
[2017-11-18 12:00] VITALS: BP 97/58
--- NOTE | 2017-11-18 12:18 | Diagnostic Imaging Report ---
PROCEDURE: A single AP view of the chest. COMPARISON: 11/13/2017. INDICATIONS: PICC LINE PLACEMENT FINDINGS: Interval placement of a right upper extremity PICC. The tip projects over the upper right atrium. Lung volumes are low with linear opacities in the right mid and lower lung compatible with subsegmental atelectasis. Small right pleural effusion is also suspected. Stable cardiomediastinal contour. No acute osseous abnormality. Postsurgical changes of the proximal right humerus. Posttraumatic deformity of the proximal left humerus. IMPRESSION: Interval placement of a right upper extremity PICC, with the tip projecting over the expected region of the upper right atrium. Otherwise stable chest relative to 11/13/2017. Dictated by: Eldon Soto M.D. on 11/18/2017 at 12:22 Electronically approved by: Eldon Soto M.D. on 11/18/2017 at 12:22
--- NOTE | 2017-11-18 12:29 | Progress Note ---
CARDIOLOGY PROGRESS NOTE SUBJECTIVE AND OVERNIGHT EVENTS: No major events overnight. Patient is now on contact isolation due to drug-resistant organisms growing from her wound cultures from lower extremities. Otherwise, she denies any chest pain. She reports being swollen in her legs, otherwise feels okay. Patient also received blood transfusion yesterday. REVIEW OF SYSTEMS: Negative other than as stated in the HPI. OBJECTIVE VITAL SIGNS: Temperature 97.4, heart rate 89, respiratory rate 18, blood pressure 103/59, satting 100% on 2 L nasal cannula. GENERAL: Patient is in no acute distress, thin female. CARDIOVASCULAR: PMI nondisplaced. Regular heart tones. S1, S2 normal. No murmurs, rubs or gallops. Palpable radial, carotid, and femoral pulses. Pedal pulses cannot be palpated due to significant lower extremity edema and wounds. LUNGS: Clear to auscultation bilaterally. No respiratory distress. ABDOMEN: Soft, nontender, nondistended. No hepatosplenomegaly. NEURO/PSYCH: Patient is alert and oriented to person and place, not time. Has a normal affect. CARDIOVASCULAR MEDICATIONS 1. Furosemide 40 mg p.o. twice a day. 2. Spironolactone 50 mg p.o. t.i.d. 3. Propranolol 10 mg b.i.d. 4. Isosorbide dinitrate 30 mg daily. 5. Potassium chloride 20 mEq daily. LABORATORY DATA: Reviewed. Hemoglobin has increased after transfusion to 11.4. Platelet counts remain critically low at 49. Chemistry: Potassium 3.9, creatinine 0.5, albumin is 1.6. IMAGING: No new imaging data to review today. TELEMETRY DATA: Reviewed. Patient remains in normal sinus rhythm without significant arrhythmias. CARDIOLOGY STUDIES: Echocardiogram reviewed from this admission, shows normal LV size and function without any significant valvular abnormalities. ASSESSMENT AND PLAN 1. Infected bilateral lower extremity ulcerations. 2. Atypical chest pain. 3. Volume overload. 4. Liver cirrhosis, likely alcoholic. 5. Diabetes. RECOMMENDATIONS: Continue the above stated diuretic and cardiovascular medication regimen. Replete potassium p.r.n. We will continue to follow. Thank you for this consult. Job#: [id number] GREER
[2017-11-18] MEDS ORDERED: PHYTONADIONE 10 MG/ML AMP SQ ONE (13:00)
--- NOTE | 2017-11-18 13:01 | Consultation ---
DATE OF CONSULTATION: November 13, 2017 HEMATOLOGY CONSULTATION HISTORY OF PRESENT ILLNESS: Jenny Edwards is a 62-year-old female referred to me for evaluation of anemia. No history of hematochezia, melena, hematuria, hematemesis, hemoptysis. HISTORY OF PAST ILLNESS: History of cirrhosis of liver. SOCIAL HISTORY: History of excessive smoking and alcohol in the past. FAMILY HISTORY: Noncontributory. ALLERGIES: REPORTED NONE. MEDICATIONS: At this time, 1. Zosyn. 2. Vancomycin. 3. Ondansetron. 4. Lactulose. REVIEW OF SYSTEMS: HEENT: Normal. CARDIAC: Normal. RESPIRATORY: Normal. GI: Cirrhotic liver. : Normal. MUSCULOSKELETAL: Normal. SKIN AND BREASTS: Normal. NEUROENDOCRINE: History of hyperglycemia. PHYSICAL EXAMINATION: GENERAL: A moderately built female. Confused. Anemic. No palpable adenopathy. HEART: Within normal limits. LUNGS: Clear. ABDOMEN: Obese. Ascites is felt. RECTAL: Exam deferred. CENTRAL NERVOUS SYSTEM: Essentially normal. EXTREMITIES: 1+ pitting edema. Sodium 136, potassium 3.4, chloride 105, CO2 27, BUN 19, creatinine 0.5. White count 6500. Hemoglobin 7.9. Hematocrit 23.5. White count of 109,000. __Platelets 248,000. Bilirubin 3, SGOT 42, SGPT 21, alkaline phosphatase 208. MCV 107.8. IMPRESSION: 1. Megaloblastic anemia. 2. High red cell distribution width, possible combined deficiency with RDW of 20.2. 3. Thrombocytopenia. 4. Hypokalemia. 5. Diabetes mellitus. 6. Increased liver function test. 7. Hypoproteinemia. 8. Hypoalbuminemia. 9. Hypocalcemia. 10. Hypomagnesemia. 11. Lactic acidosis. 12. Anemia. Plan is to give her blood transfusion. Ultrasound of the liver. Alpha-fetoprotein. Job#: [id number] EV
[2017-11-18] MEDS: COLLAGENASE OINTMENT 30 GM TUBE TP SCH (14:01)
[2017-11-18 16:00] VITALS: BP 116/46
[2017-11-18] MEDS ORDERED: METOLAZONE 5 MG TAB PO SCH ×2 (17:30)
--- NOTE | 2017-11-19 09:16 | Discharge Summary ---
PRIMARY DOCTOR: Dr. Hastings CONSULTATIONS: Dr. Jermaine Waters, fitness centre manager, Dr. Franklin Jimenez, sales enablement lead, Dr. Hayes, infectious disease, Dr. Kennedy Molina, gastroenterology, Dr. Hunt, spa assistant manager. PROCEDURE: Esophagogastroduodenoscopy done by Dr. Molina on October 17, 2017. FINAL DIAGNOSIS: Bilateral leg ulcer with infection. OTHER DIAGNOSES 1. Peripheral arterial disease. 2. Atypical chest pain. 3. Diabetes mellitus, type 2. 4. Hypertension. 5. Alcoholic cirrhosis by history. 6. Megaloblastic anemia. 7. Critical thrombocytopenia. 8. Portal gastropathy. 9. Hypokalemia, repleted. 10. Coagulopathy. BRIEF HOSPITAL COURSE: A 62-year-old female was admitted from the ER. The patient was sent to the ER for chest pain with having right foot ulcer. She was admitted by her PCP, Dr. Barbour. The patient was found having infection in her bilateral leg ulcers. She had also leg edema. The patient has a history of alcoholic cirrhosis. Cardiology consult was done by Dr. Waters. The patient was ruled out for acute KS by serial cardiac enzymes and troponins. Wound care was continued. Wound swab culture shows Acinetobacter, staph, MRSA, and Klebsiella. Consult with Dr. Hayes, infectious disease specialist optimized the patient's antibiotics. The patient was found having anemia with positive occult blood in stool. Gastroenterology, Dr. Molina, was consulted. He did an EGD, which showed portal gastropathy and gastritis. No active bleeding. Dr. Hunt, spa assistant manager, was consulted for anemia and thrombocytopenia. The patient got 1 unit of packed RBCs. The patient was recommended long-term IV antibiotics and wound care. She requested Ralf evaluation. She was accepted at [facility]. The patient was discharged to [facility] ICU under her PCP, Dr. Barbour. The patient was hemodynamically stable at discharge. PHYSICAL EXAMINATION VITALS: BP 116/46, pulse 83, temp 96, respirations 18, SpO2 100%. GENERAL: Alert and not in acute distress. HEENT: NCAT. Pupils equal and reacting. Mild pallor. No icterus. Oral mucosa moist. NECK: No JVD. No carotid bruits. No lymphadenopathy. HEART: S1 and S2 regular. No murmurs. LUNGS: Fair air entry equal on both sides. ABDOMEN: Soft. No palpable mass. Bowel sounds. EXTREMITIES: Trace bilateral ankle edema. Bilateral leg and foot ulceration. NEUROLOGICAL: Motor grossly good on both sides. No hepatic asterixis. LAB DATA: CBC: WBC 4.03, hemoglobin 11.4, hematocrit 33.7, and platelets 49,000. MCV 98, RDW 20.7. Neutrophils 56, lymphocytes 29. PT 23.6, INR 2.28. Chemistry panel: Sodium 134, potassium 3.9, chloride 99, CO2 31, anion gap 4, BUN 9, creatinine 0.5, glucose 131. Hemoglobin A1c 4.1. Lactic acid 13. Calcium 7.7. Magnesium 1.7. Serum iron 64, ferritin 498. Total bilirubin 1.9, AST 21, ALT 11, alk phos 124. CK 14. Ammonia 81. Troponin I 0.004. BNP 126. Amylase 50, lipase 75, LDL 51, HDL 12. Alpha fetoprotein 9.8. Vitamin B12 835. Folate 10.1. TSH 2.37. CPR 57. Urinalysis at presentation with protein trace, ketones negative, glucose negative, leukocyte esterase, wbcs 11-20, rbcs 6-10. Stool for occult blood positive. Hepatitis B surface antigen negative. Hepatitis B core IgM antibody negative. Hepatitis C negative. Hepatitis A IgM antibody negative. MICROBIOLOGICAL DATA: Blood culture no growth in 5 days. Wound culture with Acinetobacter, MRSA and Klebsiella ESBL positive. Urine culture with stephanie. RADIOLOGICAL DATA: X-ray of chest single view with hypoinflated lungs with bibasilar right basilar and left atelectasis. No consolidation or effusion. Renal ultrasound with no evidence of hydronephrosis or stone. Ascites within the right upper quadrant. Lower extremity ultrasound and venous Doppler negative for DVT. Arterial Doppler of bilateral lower extremities monophasic wave form bilateral, posterior tibial and right anterior tibial arteries suggestive of infrapopliteal peripheral arterial disease. X-ray of right foot 3 views limited and resolution of effusion. . Degenerative changes. Osteopenia not definitive. No acute displaced fracture. Repeat chest x-ray after PICC line placement on right upper extremity with interval placement of right upper extremity PICC line. Deep of the upper right atrium. EGD report with mild distal esophagitis, Schatzki's ring, small sliding hiatal hernia, gastritis, mild portal hypertensive gastropathy, duodenal arteriovenous malformation, bowel and proximal 2nd portion. Gastric biopsy EGD sample in progress. MEDICATIONS AT DISCHARGE: Please refer to the med reconciliation sheet. The patient is advised to continue current medications, including IV antibiotics at [facility]. Please refer to the med reconciliation sheet. DIET: Heart-healthy diet. ACTIVITY: As tolerated. Continue wound care. Fall precautions. Infectious disease recommendation is continue current medication at [facility]. CBC, CMP, PT, INR at [facility] tomorrow. NÉSTOR GRIFFITH MD Job#: [id number] AMHIN
== END 2017-11-18 17:42 | DRG 638 ==
LOC: ER 14:58 → ERHOLD 18:59 → MED/SURG3 21:07
PROVIDERS: ADMIT Internal Medicine; ATTEND Internal Medicine
PROC: 30243N1 Transfusion of Nonautologous Red Blood Cells into Central Vein, Percutaneous Approach (ICD-10-PCS; 2017-11-14)
PROC: 0DB78ZX Excision of Stomach, Pylorus, Via Natural or Artificial Opening Endoscopic, Diagnostic (ICD-10-PCS; 2017-11-16)
PROC: 0D598ZZ Destruction of Duodenum, Via Natural or Artificial Opening Endoscopic (ICD-10-PCS; 2017-11-16)
PROC: 0DB68ZX Excision of Stomach, Via Natural or Artificial Opening Endoscopic, Diagnostic (ICD-10-PCS; 2017-11-16 15:28)
PROC: 02HV33Z Insertion of Infusion Device into Superior Vena Cava, Percutaneous Approach (ICD-10-PCS; principal; 2017-11-18)
DX: E11.622 Type 2 diabetes mellitus with other skin ulcer (principal); K76.6 Portal hypertension; D68.4 Acquired coagulation factor deficiency; E87.2 Acidosis; L97.828 Non-pressure chronic ulcer of other part of left lower leg with other specified severity; L97.818 Non-pressure chronic ulcer of other part of right lower leg with other specified severity; L97.418 Non-pressure chronic ulcer of right heel and midfoot with other specified severity; E11.621 Type 2 diabetes mellitus with foot ulcer; K22.2 Esophageal obstruction; R07.89 Other chest pain; K70.30 Alcoholic cirrhosis of liver without ascites; D53.1 Other megaloblastic anemias, not elsewhere classified; K31.89 Other diseases of stomach and duodenum; E87.6 Hypokalemia; K29.70 Gastritis, unspecified, without bleeding; K44.9 Diaphragmatic hernia without obstruction or gangrene; K20.9 Esophagitis, unspecified; Q27.33 Arteriovenous malformation of digestive system vessel; D69.6 Thrombocytopenia, unspecified; E77.8 Other disorders of glycoprotein metabolism; E88.09 Other disorders of plasma-protein metabolism, not elsewhere classified; E83.51 Hypocalcemia; E83.42 Hypomagnesemia; I25.10 Atherosclerotic heart disease of native coronary artery without angina pectoris; N17.9 Acute kidney failure, unspecified; B95.62 Methicillin resistant Staphylococcus aureus infection as the cause of diseases classified elsewhere; Z16.24 Resistance to multiple antibiotics; F10.21 Alcohol dependence, in remission; B96.1 Klebsiella pneumoniae [K. pneumoniae] as the cause of diseases classified elsewhere; B96.89 Other specified bacterial agents as the cause of diseases classified elsewhere; Z16.12 Extended spectrum beta lactamase (ESBL) resistance; E11.51 Type 2 diabetes mellitus with diabetic peripheral angiopathy without gangrene
CPT/HCPCS: 36415; 36430; 36569; 43239; 43255; 51700; 71045; 76705; 76770; 80053; 80061; 80202; 81001; 82105; 82140; 82150; 82248; 82270; 82550; 82553; 82570; 82607; 82728; 82746; 82948; 83036; 83540; 83605; 83690; 83735; 83880; 84156; 84443; 84466; 84484; 85025; 85045; 85610; 85651; 85730; 86140; 86850; 86900; 86920; 87040; 87071; 87086; 87186; 87205; 88305; 88312; 93005; 93306; 93925; 97139; 99284; J1940; J2001; J2250; J2405; J2543; J3370; J3430; J3480; J7030; J7050; P9016